=== PATIENT | female | born 1960 | race Caucasian/White ===

== ENCOUNTER 2020-10-17 12:51 | Inpatient (IN) | payer OTHER ==
[~2020-10-17] VITALS: Ht 160 cm; Wt 73.7 kg
[2020-10-17] MEDS ORDERED: ONDANSETRON 2MG/ML, 2ML ONE (13:36)
[2020-10-17] MEDS ORDERED: MORPHINE SULFATE 4 MG/ML, 1ML ONE ×2 (13:36→14:11)
[2020-10-17] MEDS: MORPHINE SULFATE 4 MG/ML, 1ML IVPush PRN ×2 (13:47→14:14)
[2020-10-17 14:00] LABS: BASOPHILS % (AUTO) 0 % (0-1); EOSINOPHILS % (AUTO) 0 % (1-7); LYMPHOCYTES % (AUTO) 6 % (22-44); MEAN CORPUSCULAR HGB CONC 33.7 g/dL (32.4-35.8); MEAN PLATELET VOLUME 8.1 fL (7.4-10.4); MONOCYTES % (AUTO) 7 % (2-9); NEUTROPHILS % (AUTO) 86 % (42-75); PLATELET COUNT 289 x10^3/uL (130-400); RED BLOOD COUNT 4.34 x10^6/uL (3.82-5.3)
[2020-10-17] MEDS ORDERED: SODIUM CHLORIDE 0.9% 1,000ML IVBOLUS ONE (14:00)
[2020-10-17] MEDS ORDERED: ONDANSETRON 2MG/ML, 2ML IVPush ONE (14:00)
[2020-10-17 14:06] LABS: ALBUMIN 3.6 g/dL (3.4-5.0); ANION GAP 8 mmol/L (5-15); CALCIUM 8.9 mg/dL (8.5-10.1); CHLORIDE 96 mmol/L (98-107); CREATININE 0.72 mg/dL (0.55-1.02)
[2020-10-17 14:34] LABS: MD SCAN
[2020-10-17 15:19] LABS: MICROSCOPIC INDICATED
[2020-10-17] MEDS ORDERED: OMNIPAQUE 350 MG/ML, 100ML BOTTLE ONE (15:25)
[2020-10-17] MEDS ORDERED: CIPROFLOXACIN/PMX 400MG/200ML 200 ML IVPB ONE (15:30)
[2020-10-17] MEDS ORDERED: METRONIDAZOLE PMX 500MG/100ML 100 ML IV ONE (15:30)
[2020-10-17] MEDS ORDERED: CIPROFLOXACIN/PMX 400MG/200ML 200 ML ONE (17:00)
[2020-10-17] MEDS ORDERED: METRONIDAZOLE PMX 500MG/100ML 100 ML ONE (17:00)
[2020-10-17] MEDS ORDERED: HYDROmorphone 1 MG/ML, 1ML INJ ONE (17:24)
[2020-10-17] MEDS: HYDROmorphone 2 MG/ML, 1ML IVPush PRN ×3 (17:29→23:57)
[2020-10-17] MEDS ORDERED: hydrALAzine 20 MG/ML, 1ML IVPush PRN (17:30)
[2020-10-17] MEDS ORDERED: ACETAMINOPHEN 325 MG TABLET PO PRN (17:30)
[2020-10-17] MEDS: HEPARIN 5,000 UNITS/ML, 1ML SQ SCH (18:16)
[2020-10-17] MEDS: D5%-LR+KCL 20MEQ 1,000 ML IV SCH (18:16)
[2020-10-17 20:23] VITALS: BP 130/63
[2020-10-17] MEDS: PIPERACILLIN/TAZO/PMX 3.375GM 50 ML IV SCH (20:48)
[2020-10-17] MEDS: POLYETHYLENE GLYCOL 17 GM PACKET PO SCH (20:48)
[2020-10-18] MEDS: PIPERACILLIN/TAZO/PMX 3.375GM 50 ML IV SCH ×4 (02:47→20:06)
[2020-10-18] MEDS: HEPARIN 5,000 UNITS/ML, 1ML SQ SCH ×3 (02:47→17:13)
[2020-10-18] MEDS: HYDROmorphone 2 MG/ML, 1ML IVPush PRN ×6 (02:49→23:21)
[2020-10-18 02:55] VITALS: BP 100/54
[2020-10-18 05:28] LABS: MEAN CORPUSCULAR HEMOGLOBIN 32.1 pg (27.0-34.8); MEAN CORPUSCULAR HGB CONC 33.4 g/dL (32.4-35.8); MEAN PLATELET VOLUME 8.1 fL (7.4-10.4); PLATELET COUNT 284 x10^3/uL (130-400); RED BLOOD COUNT 3.98 x10^6/uL (3.82-5.3); RED CELL DISTRIBUTION WIDTH 12.8 % (9.6-15.2)
[2020-10-18 05:33] LABS: ALANINE AMINOTRANSFERASE 16 U/L (12-78); ALBUMIN 2.6 g/dL (3.4-5.0); ANION GAP 6 mmol/L (5-15); CHLORIDE 101 mmol/L (98-107); CREATININE 0.76 mg/dL (0.55-1.02)
[2020-10-18 05:43] LABS: ALKALINE PHOSPHATASE 86 U/L (45-117); BILIRUBIN,TOTAL 0.6 mg/dL (0.2-1.0); TOTAL PROTEIN 6.2 g/dL (6.4-8.2)
[2020-10-18 05:46] LABS: MD YES
[2020-10-18 05:48] LABS: LYMPH#(MANUAL) 0.84 x10^3/uL (1-3.4); LYMPHS% (MANUAL) 7 % (22-44); METAMYELOCYTES# (MANUAL) 0.36 x10^3/uL (0-0); METAMYELOCYTES% (MANUAL) 3 % (0-1); MONOS#(MANUAL) 0.24 x10^3/uL (0.3-2.7); MONOS% (MANUAL) 2 % (2-9)
[2020-10-18 05:49] LABS: BAND#(MANUAL) 4.92 x10^3/uL; BANDS%(MANUAL) 41 % (0-7); SEG#(MANUAL) 5.64 x10^3/uL (1.8-6.8); SEGS% (MANUAL) 47 % (42-75)
[2020-10-18 05:50] LABS: <PLATELET ESTIMATE> ADEQUATE; <PLT MORPHOLOGY> NORMAL PLT MORPH; <RBC MORPHOLOGY> NORMAL; PMNS WITH VACUOLES 1+
[2020-10-18 06:15] VITALS: BP 114/66
[2020-10-18] MEDS: D5%-LR+KCL 20MEQ 1,000 ML IV SCH ×2 (06:23→23:08)
[2020-10-18 07:11] VITALS: BP 96/62
[2020-10-18] MEDS: POLYETHYLENE GLYCOL 17 GM PACKET PO SCH ×2 (08:02→21:04)
[2020-10-18 13:50] VITALS: BP 101/60
[2020-10-18 18:13] VITALS: BP 97/63
[2020-10-18] MEDS ORDERED: SODIUM CHLORIDE 0.9% 250 ML IV SCH (19:30)
[2020-10-18] MEDS: ALBUMIN HUMAN 25% 100 ML IV SCH (20:52)
[2020-10-19 01:23] VITALS: BP 96/57
[2020-10-19] MEDS: HEPARIN 5,000 UNITS/ML, 1ML SQ SCH ×3 (02:06→16:32)
[2020-10-19] MEDS: PIPERACILLIN/TAZO/PMX 3.375GM 50 ML IV SCH ×3 (02:06→14:54)
[2020-10-19] MEDS: HYDROmorphone 2 MG/ML, 1ML IVPush PRN ×5 (02:46→16:32)
[2020-10-19] MEDS: ALBUMIN HUMAN 25% 100 ML IV SCH (02:56)
[2020-10-19 05:14] LABS: BASOPHILS % (AUTO) 0 % (0-1); EOSINOPHILS % (AUTO) 0 % (1-7); LYMPHOCYTES % (AUTO) 5 % (22-44); MEAN CORPUSCULAR HEMOGLOBIN 31.6 pg (27.0-34.8); MEAN CORPUSCULAR HGB CONC 32.5 g/dL (32.4-35.8); MEAN PLATELET VOLUME 8.1 fL (7.4-10.4); MONOCYTES % (AUTO) 4 % (2-9); NEUTROPHILS % (AUTO) 91 % (42-75); PLATELET COUNT 262 x10^3/uL (130-400); RED BLOOD COUNT 3.39 x10^6/uL (3.82-5.3)
[2020-10-19 05:16] LABS: MD NO
[2020-10-19 05:29] LABS: ALANINE AMINOTRANSFERASE 15 U/L (12-78); ALBUMIN 3.1 g/dL (3.4-5.0); ANION GAP 6 mmol/L (5-15); CALCIUM 8.2 mg/dL (8.5-10.1); CHLORIDE 103 mmol/L (98-107); CREATININE 0.56 mg/dL (0.55-1.02)
[2020-10-19 05:37] LABS: ALKALINE PHOSPHATASE 88 U/L (45-117); BILIRUBIN,TOTAL 0.5 mg/dL (0.2-1.0); TOTAL PROTEIN 6.1 g/dL (6.4-8.2)
[2020-10-19 05:38] LABS: C-REACTIVE PROTEIN, QUANT > 19.00 mg/dL (0.02-0.49)
[2020-10-19] MEDS: ONDANSETRON 2MG/ML, 2ML IVPush PRN (05:55)
[2020-10-19] MEDS: D5%-LR+KCL 20MEQ 1,000 ML IV SCH (06:10)
[2020-10-19 06:30] VITALS: BP 130/76
[2020-10-19] MEDS: POLYETHYLENE GLYCOL 17 GM PACKET PO SCH (09:07)
[2020-10-19] MEDS ORDERED: OMNIPAQUE 350 MG/ML, 100ML BOTTLE ONE (14:04)
[2020-10-19 17:45] VITALS: BP 110/63
[2020-10-19] MEDS ORDERED: FENTANYL PF 250 MCG/5ML ONE (18:45)
[2020-10-19] MEDS ORDERED: MIDAZOLAM 1 MG/ML, 2ML ONE (18:45)
[2020-10-19] MEDS ORDERED: CEFOTETAN 2 GM ONE (19:45)
[2020-10-19] MEDS ORDERED: KETOROLAC 30 MG/1 ML ONE (19:45)
[2020-10-19] MEDS ORDERED: ONDANSETRON 2MG/ML, 2ML ONE (19:45)
[2020-10-19] MEDS ORDERED: SUGAMMADEX 200 MG/2 ML IVPush ONE (19:45)
[2020-10-19] MEDS ORDERED: PROPOFOL 10 MG/ML, 20ML ONE (19:45)
[2020-10-19] MEDS ORDERED: ROCURONIUM 10 MG/ML,10ML ONE (19:45)
[2020-10-19] MEDS ORDERED: BUPIVACAINE/PF-EPI 0.5% 1:200K INFIL ONE (20:17)
[2020-10-19] MEDS ORDERED: LABETALOL 5MG/ML, 20ML IV PRN (22:30)
[2020-10-19] MEDS ORDERED: FENTANYL PF 100 MCG/2ML IV PRN (22:30)
[2020-10-19] MEDS ORDERED: hydrALAzine 20 MG/ML, 1ML IV PRN (22:30)
[2020-10-19] MEDS ORDERED: DIAZEPAM 5 MG/ML, 2ML IVPush PRN (22:30)
[2020-10-19] MEDS ORDERED: ONDANSETRON 2MG/ML, 2ML IVPush PRN (22:30)
[2020-10-19] MEDS ORDERED: METOCLOPRAMIDE 5 MG/ML, 2ML IVPush PRN (22:30)
[2020-10-19] MEDS ORDERED: OXYcodone 5 MG/5 ML ORAL.SOL UDC PO PRN (22:30)
[2020-10-19] MEDS ORDERED: PROMETHAZINE 25 MG/ML, 1ML IVPush PRN (22:30)
[2020-10-19] MEDS ORDERED: ACETAMINOPHEN 325 MG TABLET PO PRN (22:30)
[2020-10-19] MEDS ORDERED: MEPERIDINE/PF 25MG/0.5ML IVPush PRN (22:30)
[2020-10-19] MEDS ORDERED: METHOCARBAMOL 1,000 MG in DEXTROSE 5% 100 ML IV PRN (22:30)
[2020-10-19] MEDS ORDERED: DIPHENHYDRAMINE 50 MG/ML, 1ML IVPush PRN (22:30)
[2020-10-19] MEDS ORDERED: HYDROmorphone 1 MG/ML, 1ML INJ ONE (23:19)
[2020-10-19] MEDS: HYDROmorphone 1 MG/ML, 1ML INJ IVPush PRN ×2 (23:20→23:30)
[2020-10-20 00:43] VITALS: BP 107/68
[2020-10-20] MEDS: PIPERACILLIN/TAZO/PMX 3.375GM 50 ML IV SCH ×4 (01:17→18:27)
[2020-10-20] MEDS: D5%-LR+KCL 20MEQ 1,000 ML IV SCH ×3 (01:18→20:25)
[2020-10-20] MEDS: HYDROmorphone 2 MG/ML, 1ML IVPush PRN ×6 (02:38→23:51)
[2020-10-20 04:47] VITALS: BP 114/71
[2020-10-20 05:35] LABS: MEAN CORPUSCULAR HEMOGLOBIN 32.2 pg (27.0-34.8); MEAN CORPUSCULAR HGB CONC 33.1 g/dL (32.4-35.8); MEAN PLATELET VOLUME 8.6 fL (7.4-10.4); PLATELET COUNT 369 x10^3/uL (130-400); RED BLOOD COUNT 4.32 x10^6/uL (3.82-5.3); RED CELL DISTRIBUTION WIDTH 13.3 % (9.6-15.2)
[2020-10-20 05:44] LABS: ALBUMIN 2.2 g/dL (3.4-5.0); ANION GAP 8 mmol/L (5-15); CALCIUM 7.5 mg/dL (8.5-10.1); CHLORIDE 106 mmol/L (98-107); CREATININE 0.78 mg/dL (0.55-1.02)
[2020-10-20 05:57] LABS: MD YES
[2020-10-20 06:03] LABS: <PLATELET ESTIMATE> ADEQUATE; <PLT MORPHOLOGY> NORMAL PLT MORPH; <RBC MORPHOLOGY> NORMAL; BANDS%(MANUAL) 25 % (0-7); LYMPH#(MANUAL) 0.39 x10^3/uL (1-3.4); LYMPHS% (MANUAL) 2 % (22-44); MONOS#(MANUAL) 0.39 x10^3/uL (0.3-2.7); MONOS% (MANUAL) 2 % (2-9); SEG#(MANUAL) 13.92 x10^3/uL (1.8-6.8); SEGS% (MANUAL) 71 % (42-75)
[2020-10-20 07:28] VITALS: BP 103/69
[2020-10-20] MEDS: HEPARIN 5,000 UNITS/ML, 1ML SQ SCH ×2 (08:19→16:22)
[2020-10-20] MEDS: DOCUSATE 50 MG/5 ML, 10ML UDC PO SCH (08:50)
[2020-10-20 10:15] VITALS: BP 112/73
[2020-10-20 13:37] VITALS: BP 131/82
[2020-10-20 21:05] VITALS: BP 120/75
[2020-10-21] VITALS: BP 107/66
[2020-10-21] MEDS: HEPARIN 5,000 UNITS/ML, 1ML SQ SCH ×3 (01:05→17:31)
[2020-10-21] MEDS: PIPERACILLIN/TAZO/PMX 3.375GM 50 ML IV SCH ×4 (01:05→19:28)
[2020-10-21] MEDS: HYDROmorphone 2 MG/ML, 1ML IVPush PRN ×5 (02:48→21:41)
[2020-10-21 04:15] VITALS: BP 116/71
[2020-10-21 06:04] LABS: BASOPHILS % (AUTO) 0 % (0-1); EOSINOPHILS % (AUTO) 0 % (1-7); LYMPHOCYTES % (AUTO) 6 % (22-44); MEAN CORPUSCULAR HEMOGLOBIN 32.1 pg (27.0-34.8); MEAN PLATELET VOLUME 8.1 fL (7.4-10.4); MONOCYTES % (AUTO) 7 % (2-9); NEUTROPHILS % (AUTO) 87 % (42-75); PLATELET COUNT 331 x10^3/uL (130-400); RED CELL DISTRIBUTION WIDTH 13.3 % (9.6-15.2)
[2020-10-21 06:07] LABS: MD NO
[2020-10-21 06:17] LABS: ALBUMIN 1.9 g/dL (3.4-5.0); ANION GAP 1 mmol/L (5-15); CALCIUM 7.8 mg/dL (8.5-10.1); CHLORIDE 105 mmol/L (98-107)
[2020-10-21 06:18] LABS: CREATININE 0.59 mg/dL (0.55-1.02)
[2020-10-21 07:28] VITALS: BP 114/69
[2020-10-21] MEDS: D5%-LR+KCL 20MEQ 1,000 ML IV SCH ×2 (08:10→17:00)
[2020-10-21] MEDS: DOCUSATE 50 MG/5 ML, 10ML UDC PO SCH (08:10)
[2020-10-21 10:06] VITALS: BP 131/68
[2020-10-21] MEDS ORDERED: FAMOTIDINE 20 MG/2 ML ONE (12:53)
[2020-10-21] MEDS: FAMOTIDINE 20 MG/2 ML IVPush SCH ×2 (13:00→21:41)
[2020-10-21 13:18] VITALS: BP 129/78
[2020-10-21 18:33] VITALS: BP 120/73
[2020-10-22 00:06] VITALS: BP 126/74
[2020-10-22] MEDS: PIPERACILLIN/TAZO/PMX 3.375GM 50 ML IV SCH ×4 (01:24→19:30)
[2020-10-22] MEDS: HEPARIN 5,000 UNITS/ML, 1ML SQ SCH ×3 (01:24→18:09)
[2020-10-22 04:34] VITALS: BP 114/71
[2020-10-22] MEDS: HYDROmorphone 2 MG/ML, 1ML IVPush PRN ×5 (05:02→23:32)
[2020-10-22] MEDS: ONDANSETRON 2MG/ML, 2ML IVPush PRN (05:02)
[2020-10-22 05:55] LABS: MEAN CORPUSCULAR HEMOGLOBIN 32.3 pg (27.0-34.8); MEAN CORPUSCULAR HGB CONC 33.4 g/dL (32.4-35.8); PLATELET COUNT 329 x10^3/uL (130-400); RED BLOOD COUNT 3.19 x10^6/uL (3.82-5.3); RED CELL DISTRIBUTION WIDTH 13.5 % (9.6-15.2)
[2020-10-22 05:58] LABS: ALBUMIN 1.8 g/dL (3.4-5.0); ANION GAP 4 mmol/L (5-15); CALCIUM 7.8 mg/dL (8.5-10.1); CHLORIDE 110 mmol/L (98-107)
[2020-10-22 06:00] LABS: CREATININE 0.43 mg/dL (0.55-1.02)
[2020-10-22] MEDS: D5%-LR+KCL 20MEQ 1,000 ML IV SCH ×2 (06:30→18:10)
[2020-10-22 07:11] LABS: MD YES
[2020-10-22 07:12] LABS: BAND#(MANUAL) 0.34 x10^3/uL; BANDS%(MANUAL) 2 % (0-7); LYMPH#(MANUAL) 1.37 x10^3/uL (1-3.4); LYMPHS% (MANUAL) 8 % (22-44); METAMYELOCYTES# (MANUAL) 0.17 x10^3/uL (0-0); METAMYELOCYTES% (MANUAL) 1 % (0-1); MONOS% (MANUAL) 7 % (2-9); SEG#(MANUAL) 14.02 x10^3/uL (1.8-6.8); SEGS% (MANUAL) 82 % (42-75)
[2020-10-22 07:13] LABS: <PLATELET ESTIMATE> ADEQUATE; <PLT MORPHOLOGY> NORMAL PLT MORPH; <RBC MORPHOLOGY> NORMAL; PMNS WITH VACUOLES 1+
[2020-10-22 07:15] VITALS: BP 124/76
[2020-10-22] MEDS: DOCUSATE 50 MG/5 ML, 10ML UDC PO SCH (08:39)
[2020-10-22] MEDS: FAMOTIDINE 20 MG/2 ML IVPush SCH ×2 (08:39→20:37)
[2020-10-22 13:30] VITALS: BP 121/74
[2020-10-22 16:21] VITALS: BP 133/80
[2020-10-22 19:18] VITALS: BP 122/76
[2020-10-23 00:16] VITALS: BP 125/75
[2020-10-23] MEDS: PIPERACILLIN/TAZO/PMX 3.375GM 50 ML IV SCH ×4 (01:28→20:18)
[2020-10-23] MEDS: HEPARIN 5,000 UNITS/ML, 1ML SQ SCH ×3 (01:28→17:52)
[2020-10-23 04:28] VITALS: BP 119/75
[2020-10-23] MEDS: HYDROmorphone 2 MG/ML, 1ML IVPush PRN ×5 (05:03→21:02)
[2020-10-23 05:27] LABS: MEAN CORPUSCULAR HEMOGLOBIN 31.5 pg (27.0-34.8); PLATELET COUNT 309 x10^3/uL (130-400); RED BLOOD COUNT 3.19 x10^6/uL (3.82-5.3); RED CELL DISTRIBUTION WIDTH 13.7 % (9.6-15.2)
[2020-10-23 05:32] LABS: ANION GAP 5 mmol/L (5-15); CALCIUM 7.6 mg/dL (8.5-10.1); CHLORIDE 111 mmol/L (98-107); CREATININE 0.37 mg/dL (0.55-1.02)
[2020-10-23 06:12] LABS: MD YES
[2020-10-23 06:13] LABS: <PLATELET ESTIMATE> ADEQUATE; <PLT MORPHOLOGY> NORMAL PLT MORPH; <RBC MORPHOLOGY> NORMAL; BAND#(MANUAL) 0.57 x10^3/uL; BANDS%(MANUAL) 4 % (0-7); EOS#(MANUAL) 0.14 x10^3/uL (0.0-0.4); EOS% (MANUAL) 1 % (1-7); LYMPH#(MANUAL) 1.28 x10^3/uL (1-3.4); LYMPHS% (MANUAL) 9 % (22-44); MONOS#(MANUAL) 1.14 x10^3/uL (0.3-2.7); MONOS% (MANUAL) 8 % (2-9); SEG#(MANUAL) 11.08 x10^3/uL (1.8-6.8); SEGS% (MANUAL) 78 % (42-75)
[2020-10-23] MEDS: D5%-LR+KCL 20MEQ 1,000 ML IV SCH ×2 (07:09→17:12)
[2020-10-23] MEDS: FAMOTIDINE 20 MG/2 ML IVPush SCH ×2 (08:29→20:18)
[2020-10-23] MEDS: DOCUSATE 50 MG/5 ML, 10ML UDC PO SCH (08:29)
[2020-10-23 08:34] VITALS: BP 119/66
[2020-10-23 11:15] VITALS: BP 122/70
[2020-10-23 16:05] VITALS: BP 132/63
[2020-10-23 19:35] VITALS: BP 125/63
[2020-10-24 00:19] VITALS: BP 139/72
[2020-10-24] MEDS: HYDROmorphone 2 MG/ML, 1ML IVPush PRN ×6 (00:27→19:55)
[2020-10-24] MEDS: HEPARIN 5,000 UNITS/ML, 1ML SQ SCH ×3 (02:49→17:52)
[2020-10-24] MEDS: D5%-LR+KCL 20MEQ 1,000 ML IV SCH ×3 (02:49→22:52)
[2020-10-24] MEDS: PIPERACILLIN/TAZO/PMX 3.375GM 50 ML IV SCH ×4 (02:51→20:27)
[2020-10-24 04:03] VITALS: BP 113/62
[2020-10-24 06:25] LABS: MEAN CORPUSCULAR HEMOGLOBIN 31.6 pg (27.0-34.8); MEAN PLATELET VOLUME 7.8 fL (7.4-10.4); PLATELET COUNT 353 x10^3/uL (130-400); RED BLOOD COUNT 3.34 x10^6/uL (3.82-5.3); RED CELL DISTRIBUTION WIDTH 13.4 % (9.6-15.2)
[2020-10-24 06:30] LABS: ANION GAP 5 mmol/L (5-15); CALCIUM 7.9 mg/dL (8.5-10.1); CHLORIDE 110 mmol/L (98-107)
[2020-10-24 06:32] LABS: CREATININE 0.39 mg/dL (0.55-1.02)
[2020-10-24 07:20] VITALS: BP 134/83
[2020-10-24 07:27] LABS: MD YES
[2020-10-24 07:28] LABS: <RBC MORPHOLOGY> NORMAL; BAND#(MANUAL) 0.31 x10^3/uL; BANDS%(MANUAL) 2 % (0-7); EOS#(MANUAL) 0.15 x10^3/uL (0.0-0.4); EOS% (MANUAL) 1 % (1-7); LYMPH#(MANUAL) 1.39 x10^3/uL (1-3.4); LYMPHS% (MANUAL) 9 % (22-44); METAMYELOCYTES# (MANUAL) 0.31 x10^3/uL (0-0); METAMYELOCYTES% (MANUAL) 2 % (0-1); MONOS#(MANUAL) 0.62 x10^3/uL (0.3-2.7); MONOS% (MANUAL) 4 % (2-9); MYELOCYTES# (MANUAL) 0.15 x10^3/uL (0-0); MYELOCYTES% (MANUAL) 1 % (0-0); SEG#(MANUAL) 12.47 x10^3/uL (1.8-6.8); SEGS% (MANUAL) 81 % (42-75)
[2020-10-24 07:29] LABS: <PLATELET ESTIMATE> ADEQUATE; <PLT MORPHOLOGY> NORMAL PLT MORPH
[2020-10-24] MEDS: FAMOTIDINE 20 MG/2 ML IVPush SCH ×3 (08:52→20:28)
[2020-10-24] MEDS: DOCUSATE 50 MG/5 ML, 10ML UDC PO SCH (08:52)
[2020-10-24] MEDS: POLYETHYLENE GLYCOL 17 GM PACKET PO SCH ×2 (10:43→20:28)
[2020-10-24 12:59] VITALS: BP 146/83
[2020-10-24 15:58] VITALS: BP 130/70
[2020-10-24 18:55] VITALS: BP 137/77
[2020-10-25 00:03] VITALS: BP 125/69
[2020-10-25] MEDS: HEPARIN 5,000 UNITS/ML, 1ML SQ SCH ×3 (01:36→17:57)
[2020-10-25] MEDS: HYDROmorphone 2 MG/ML, 1ML IVPush PRN ×2 (01:37→06:08)
[2020-10-25] MEDS: PIPERACILLIN/TAZO/PMX 3.375GM 50 ML IV SCH (02:15)
[2020-10-25 04:05] VITALS: BP 119/63
[2020-10-25 05:00] LABS: MEAN CORPUSCULAR HEMOGLOBIN 31.8 pg (27.0-34.8); MEAN CORPUSCULAR HGB CONC 33.5 g/dL (32.4-35.8); MEAN PLATELET VOLUME 7.8 fL (7.4-10.4); PLATELET COUNT 405 x10^3/uL (130-400); RED CELL DISTRIBUTION WIDTH 13.6 % (9.6-15.2)
[2020-10-25 05:14] LABS: ALANINE AMINOTRANSFERASE 37 U/L (12-78); ALBUMIN 1.7 g/dL (3.4-5.0); ANION GAP 7 mmol/L (5-15); CALCIUM 7.3 mg/dL (8.5-10.1); CHLORIDE 106 mmol/L (98-107); CREATININE 0.44 mg/dL (0.55-1.02)
[2020-10-25 05:16] LABS: ALKALINE PHOSPHATASE 130 U/L (45-117); BILIRUBIN,TOTAL 0.5 mg/dL (0.2-1.0)
[2020-10-25 05:48] LABS: MD YES
[2020-10-25 05:49] LABS: <PLATELET ESTIMATE> ADEQUATE; <PLT MORPHOLOGY> NORMAL PLT MORPH; <RBC MORPHOLOGY> NORMAL; BANDS%(MANUAL) 7 % (0-7); EOS#(MANUAL) 0.16 x10^3/uL (0.0-0.4); EOS% (MANUAL) 1 % (1-7); LYMPH#(MANUAL) 1.26 x10^3/uL (1-3.4); LYMPHS% (MANUAL) 8 % (22-44); METAMYELOCYTES# (MANUAL) 0.47 x10^3/uL (0-0); METAMYELOCYTES% (MANUAL) 3 % (0-1); MONOS#(MANUAL) 0.31 x10^3/uL (0.3-2.7); MONOS% (MANUAL) 2 % (2-9); SEGS% (MANUAL) 79 % (42-75)
[2020-10-25] MEDS ORDERED: POTASSIUM CHLORIDE 40 MEQ in SODIUM CHLORIDE 0.9% 500 ML IV ONE (07:30)
[2020-10-25 07:35] VITALS: BP 132/75
[2020-10-25] MEDS: FAMOTIDINE 20 MG/2 ML IVPush SCH (08:26)
[2020-10-25] MEDS: POLYETHYLENE GLYCOL 17 GM PACKET PO SCH ×2 (08:26→19:56)
[2020-10-25] MEDS: AMOXICILLIN/CLAV 875-125MG TABLET PO SCH ×2 (08:27→19:56)
[2020-10-25] MEDS: SODIUM CHLORIDE FLUSH 3ML SYRINGE IVF SCH ×2 (09:00→19:57)
[2020-10-25 11:37] VITALS: BP 118/65
[2020-10-25] MEDS: OXYcodone/APAP 5/325MG TABLET PO PRN ×3 (11:45→20:07)
[2020-10-25 16:07] VITALS: BP 140/74
[2020-10-25] MEDS: ONDANSETRON 2MG/ML, 2ML IVPush PRN (18:14)
[2020-10-25 19:14] VITALS: BP 123/67
[2020-10-25] MEDS: FAMOTIDINE 20 MG TABLET PO SCH (19:56)
[2020-10-26 00:24] VITALS: BP 122/67
[2020-10-26] MEDS: HEPARIN 5,000 UNITS/ML, 1ML SQ SCH ×2 (01:26→08:55)
[2020-10-26 03:50] VITALS: BP 118/68
[2020-10-26 05:15] LABS: BASOPHILS % (AUTO) 0 % (0-1); EOSINOPHILS % (AUTO) 2 % (1-7); LYMPHOCYTES % (AUTO) 15 % (22-44); MEAN CORPUSCULAR HEMOGLOBIN 31.4 pg (27.0-34.8); MEAN CORPUSCULAR HGB CONC 33.2 g/dL (32.4-35.8); MONOCYTES % (AUTO) 8 % (2-9); NEUTROPHILS % (AUTO) 75 % (42-75); PLATELET COUNT 480 x10^3/uL (130-400); RED BLOOD COUNT 3.29 x10^6/uL (3.82-5.3); RED CELL DISTRIBUTION WIDTH 13.5 % (9.6-15.2)
[2020-10-26 05:18] LABS: MD NO
[2020-10-26 05:27] LABS: CHLORIDE 107 mmol/L (98-107)
[2020-10-26 05:37] LABS: ANION GAP 7 mmol/L (5-15); CALCIUM 7.7 mg/dL (8.5-10.1)
[2020-10-26] MEDS: FAMOTIDINE 20 MG TABLET PO SCH (05:50)
[2020-10-26] MEDS: OXYcodone/APAP 5/325MG TABLET PO PRN ×2 (06:20→12:03)
[2020-10-26 07:45] VITALS: BP 114/70
[2020-10-26] MEDS: AMOXICILLIN/CLAV 875-125MG TABLET PO SCH (08:54)
[2020-10-26] MEDS: POLYETHYLENE GLYCOL 17 GM PACKET PO SCH (08:54)
[2020-10-26] MEDS: SODIUM CHLORIDE FLUSH 3ML SYRINGE IVF SCH (09:00)
[2020-10-26] MEDS ORDERED: ACET325T26 PO (10:55)
[2020-10-26] MEDS ORDERED: FAMO20TA7 PO (10:55)
[2020-10-26] MEDS ORDERED: ONDA4TAB7 PO (10:55)
[2020-10-26] MEDS ORDERED: AMOX1TAB12 PO (10:55)
[2020-10-26] MEDS ORDERED: OXYC1TAB14 PO (10:55)
[2020-10-26 12:32] VITALS: BP 114/74
== END 2020-10-26 15:00 | disposition home or self-care (01) | DRG 329 ==
LOC: ED 15:02 → EDIP 16:00 → 3N 17:11 → 4NE 10-19 22:04
PROVIDERS: ADMIT Internal Medicine; ATTEND Internal Medicine
PROC: 0DJD8ZZ Inspection of Lower Intestinal Tract, Via Natural or Artificial Opening Endoscopic (ICD-10-PCS; 2020-10-19)
PROC: 0DTN0ZZ Resection of Sigmoid Colon, Open Approach (ICD-10-PCS; principal; 2020-10-19 19:00)
DX: K63.3 Ulcer of intestine (principal); K65.0 Generalized (acute) peritonitis; K57.20 Diverticulitis of large intestine with perforation and abscess without bleeding; E87.1 Hypo-osmolality and hyponatremia; K56.7 Ileus, unspecified; K52.89 Other specified noninfective gastroenteritis and colitis; Z20.822 Contact with and (suspected) exposure to COVID-19; E78.5 Hyperlipidemia, unspecified; K56.41 Fecal impaction; Z80.1 Family history of malignant neoplasm of trachea, bronchus and lung; Z80.8 Family history of malignant neoplasm of other organs or systems; Z85.820 Personal history of malignant melanoma of skin; Z87.891 Personal history of nicotine dependence; Z90.711 Acquired absence of uterus with remaining cervical stump; Z93.3 Colostomy status; Z53.31 Laparoscopic surgical procedure converted to open procedure
CPT/HCPCS: 36415; 71045; 74018; 74021; 74177; 80048; 80053; 81001; 82040; 83690; 83735; 84100; 84443; 85025; 86140; 87040; 87086; 87635; 88307; 96374; 96375; 99285; G0378; J0744; J1170; J1644; J1885; J2250; J2405; J2543; J2704; J3010; J3480; P9047; Q9967; C1765; J2270; J2800; J7030; J7040; J7050